=== PATIENT | female | born 1975 | race Caucasian/White ===

== ENCOUNTER 2017-08-17 13:55 | Outpatient (CLI) | payer BC | END 2017-08-17 13:56 | disposition home or self-care (01) | LOC: BICMAMMO 13:55 | PROVIDERS: ATTEND Obstetrics & Gynecology | DX: Z12.31 Encounter for screening mammogram for malignant neoplasm of breast (principal) | CPT/HCPCS: 77063; 77067 ==

== ENCOUNTER 2018-08-19 12:07 | Outpatient (CLI) | payer BC | END 2018-08-19 12:08 | disposition home or self-care (01) | LOC: BICMAMMO 12:07 | PROVIDERS: ATTEND Internal Medicine | DX: Z12.31 Encounter for screening mammogram for malignant neoplasm of breast (principal); N63.21 Unspecified lump in the left breast, upper outer quadrant | CPT/HCPCS: 77063; 77067 ==

== ENCOUNTER 2018-08-26 15:46 | Outpatient (CLI) | payer BC ==
--- NOTE | 2018-08-26 17:00 | ULT ---
LIMITED LEFT BREAST ULTRASOUND: Date: 08-26-18 Provided Clinical History: Left breast mass on screening mammogram. FINDINGS: Limited sonographic interrogation was performed of the left breast in the region of mammographic conc adriane. There is a 3.9 x 1.3 cm circumscribed anechoic structure in the region of mammographic concern, compatible with a simple cyst. IMPRESSION: BIRADS category 2 - benign findings. Return to annual screening mammography. POS: [facility]
== END 2018-08-26 15:47 | disposition home or self-care (01) ==
LOC: BICULT 15:46
PROVIDERS: ATTEND Internal Medicine
DX: N63.0 Unspecified lump in unspecified breast (principal)

== ENCOUNTER 2019-04-16 13:56 | Outpatient (CLI) | payer BC ==
--- NOTE | 2019-04-16 15:34 | RAD ---
LEFT HAND 2 VIEWS: Date: 04/16/19 HISTORY: Joint pain. FINDINGS: Minimal narrowing of the radiocarpal joint. No significant DJD at the carpometacarpal. The MCP and IP joints are unremarkable. IMPRESSION: No evidence of significant arthropathy. POS: OFF
--- NOTE | 2019-04-16 15:41 | RAD ---
RIGHT HAND 2 VIEWS: Date: 04/16/19 HISTORY: Joint pain. FINDINGS: Minimal DJD at the first carpometacarpal. MCP and IP joints unremarkable. IMPRESSION: No significant arthropathy apparent. POS: OFF
--- NOTE | 2019-04-16 15:43 | RAD ---
LEFT FOOT 3 VIEWS: Date 04/16/19 HISTORY: Joint pain. FINDINGS: Tarsals are unremarkable. A tiny enthesophyte from the plantar calcaneus is noted. The MTP and IP joints are unremarkable. No evidence of degenerative change or other arthropathy. IMPRESSION: Tiny enthesophyte from the plantar calcaneus. Left foot otherwise unremarkable. POS: OFF
== END 2019-04-16 13:57 | disposition home or self-care (01) ==
LOC: BICRAD 13:56
PROVIDERS: ATTEND Internal Medicine Rheumatology
DX: M25.541 Pain in joints of right hand (principal); M25.542 Pain in joints of left hand; M25.572 Pain in left ankle and joints of left foot; M25.775 Osteophyte, left foot

== ENCOUNTER 2022-02-16 08:20 | Outpatient (CLI) | payer BC | END 2022-02-16 08:21 | disposition home or self-care (01) | LOC: BICMAMMO 08:20 | PROVIDERS: ATTEND Internal Medicine | DX: N63.20 Unspecified lump in the left breast, unspecified quadrant (principal) | CPT/HCPCS: G0279 ==

== ENCOUNTER 2023-03-28 08:14 | Outpatient (CLI) | payer BC | END 2023-03-28 08:15 | disposition home or self-care (01) | LOC: SCSRAD 08:14 | PROVIDERS: ATTEND Internal Medicine Rheumatology | DX: M25.571 Pain in right ankle and joints of right foot (principal); M25.572 Pain in left ankle and joints of left foot; M05.79 Rheumatoid arthritis with rheumatoid factor of multiple sites without organ or systems involvement ==

== ENCOUNTER 2023-05-24 14:57 | Outpatient (CLI) | payer BC | END 2023-05-24 14:58 | disposition home or self-care (01) | LOC: BICMAMMO 14:57 | PROVIDERS: ATTEND Student in an Organized Health Care Education/Training Program | DX: N63.13 Unspecified lump in the right breast, lower outer quadrant (principal); N60.11 Diffuse cystic mastopathy of right breast | CPT/HCPCS: G0279 ==